=== PATIENT | male | born 1980 | race Caucasian/White ===

== ENCOUNTER 2021-05-13 10:57 | Observation (INO) | payer OTHER, BC ==
[2021-05-13] MEDS ORDERED: ceFAZolin 2 GM/DEX 5% 100 ML BAG ONE (11:01)
[2021-05-13] MEDS ORDERED: Boostrix 0.5 ML (Tdap) VIAL ONE (11:01)
[2021-05-13] MEDS ORDERED: Morphine 4 MG/ML VIAL ONE (11:03)
[2021-05-13] MEDS ORDERED: Ondansetron PF 4 MG/2 ML Vial ONE ×2 (11:03→17:28)
[2021-05-13 11:35] LABS: ALT (SGPT) 57 U/L (8-55); AST (SGOT) 35 U/L (5-34); Albumin 4.3 g/dL (3.5-5.0); Alkaline Phosphatase 71 U/L (40-110); Anion Gap 14 mmol/L (10-20); BUN (Urea Nitrogen) 12 mg/dL (8.9-20.6); Bilirubin, Total 0.8 mg/dL (0.2-1.2); Calc. Creatinine Clearance 0 mL/min (70-130); Calcium 9.2 mg/dL (7.8-10.44); Carbon Dioxide 23 mmol/L (22-29); Chloride 106 mmol/L (98-107); Globulin 2.8 g/dL (2.4-3.5); Glucose 116 mg/dL (70-105); Protein, Total 7.1 g/dL (6.0-8.3); Sodium 139 mmol/L (136-145)
[2021-05-13] MEDS ORDERED: Fentanyl 100 MCG/2 ML VIAL ONE ×3 (11:40→18:57)
[2021-05-13 11:41] LABS: #Basophils 0.1 thou/uL (0.0-0.2); #Eosinphils 0.4 thou/uL (0.0-0.7); #Lymphocytes 4.4 thou/uL (1.20-3.40); #Monocytes 0.9 thou/uL (0.11-0.59); #Neutrophils 4.4 thou/uL (1.40-6.50); %Eosinophils 3.9 % (0.0-10.0); %Lymphocytes 43.6 % (21.0-51.0); %Monocytes 8.5 % (0.0-10.0); Hemoglobin 15.8 g/dL (14.0-18.0); Mean Corpuscular HGB CONC 33.1 g/dL (32.0-36.0); Mean Corpuscular Volume 99.5 fL (78.0-98.0); Mean Platelet Volume 8.5 fL (7.4-10.4); Platelet Count 217 thou/uL (130-400); RBC Distribution Width 12.3 % (11.5-14.5); White Blood Cell (WBC) Count 10.2 thou/uL (4.8-10.8)
[2021-05-13 12:11] LABS: SARS-CoV-2 NAA Rapid Test Not Detected (NotDetected)
[2021-05-13] MEDS ORDERED: HYDROmorphone 0.5 MG/0.5 ML SYRINGE ONE ×4 (12:40→19:49)
[2021-05-13] MEDS ORDERED: Lidocaine 1% w/Epinephrine 1:100K 20 ML VIAL ONE (12:52)
[2021-05-13] MEDS ORDERED: Lidocaine 1% PF 5 ML VIAL ONE ×2 (13:19→17:28)
[2021-05-13] MEDS ORDERED: Ketamine 50 MG/ML (10ML VIAL) ONE ×2 (13:34→14:55)
[2021-05-13] MEDS ORDERED: Ketorolac Tromethamine 30 MG/ML VIAL ONE (13:34)
[2021-05-13] MEDS ORDERED: Lidocaine 1% (PF) 30 ML VIAL ONE ×2 (14:27→17:38)
[2021-05-13] MEDS ORDERED: Ondansetron ODT 4 MG TAB PO PRN (16:17)
[2021-05-13] MEDS ORDERED: Ondansetron PF 4 MG/2 ML Vial IVP PRN (16:17)
[2021-05-13] MEDS ORDERED: hydrALAZINE 20 MG/ML VIAL SLOW IVP PRN (16:21)
[2021-05-13] MEDS ORDERED: traMADol HCl 50 MG TAB PO PRN (16:21)
[2021-05-13] MEDS ORDERED: Midazolam HCl 2 mg/2 ml Vial ONE (16:46)
[2021-05-13] MEDS ORDERED: Neomycin-Polymyxin 1 ML AMP ONE (16:55)
[2021-05-13] MEDS ORDERED: PHENYLEPHRINE-NS 100 MCG/ML 10 ML SYRINGE ONE (17:28)
[2021-05-13] MEDS ORDERED: Succinylcholine 200 MG/10 ml SYRINGE FS ONE (17:28)
[2021-05-13] MEDS ORDERED: Dexamethasone 20 MG/5 ML VIAL ONE (17:28)
[2021-05-13] MEDS ORDERED: PROPOFOL 200 MG/20 ML VIAL ONE (17:28)
[2021-05-13] MEDS ORDERED: Bupivacaine 0.25% HCL 30 ML VIAL ONE (17:38)
[2021-05-13] MEDS ORDERED: Morphine 4 MG/ML VIAL SLOW IVP PRN (18:23)
[2021-05-13] MEDS ORDERED: Promethazine HCl 25 MG/ML VIAL IM PRN (18:56)
[2021-05-13] MEDS ORDERED: Meperidine HCl/PF 25 MG/ML VIAL SLOW IVP PRN (18:56)
[2021-05-13] MEDS ORDERED: Ondansetron HCl/PF 4 MG/2 ML Vial IVP PRN (18:56)
[2021-05-13] MEDS ORDERED: HYDROmorphone 2 MG/ML VIAL SLOW IVP PRN (18:56)
[2021-05-13] MEDS ORDERED: Promethazine HCl 25 MG/ML VIAL IVPB PRN (18:56)
[2021-05-13] MEDS: Famotidine 20 MG TAB PO SCH (20:49)
[2021-05-13] MEDS: traMADol HCl 50 MG TAB PO SCH ×2 (20:49→23:36)
[2021-05-13] MEDS: Gabapentin 300 MG CAP PO SCH (20:50)
[2021-05-13] MEDS: Cyclobenzaprine 10 MG TAB PO PRN (20:51)
[2021-05-13] MEDS: Senokot S 8.6-50 MG TAB PO SCH (20:59)
[2021-05-13] MEDS: Ibuprofen 600 MG TAB PO SCH ×2 (20:59→23:35)
[2021-05-13] MEDS: Acetaminophen 325 MG TAB PO SCH ×2 (20:59→22:24)
[2021-05-13] MEDS: Sodium Chloride 0.9% 1,000 ML IV SCH (22:24)
[2021-05-13] MEDS: CEFAZOLIN 2 GM in Premix Bag 1 BAG IVPB SCH (22:29)
[2021-05-13 22:38] VITALS: BMI 40.7
[2021-05-14] MEDS: Sodium Chloride 0.9% 1,000 ML IV SCH ×2 (04:31→09:59)
[2021-05-14] MEDS: Acetaminophen 325 MG TAB PO SCH ×2 (04:33→10:08)
[2021-05-14 06:05] LABS: #Lymphocytes 1.1 thou/uL (1.20-3.40); #Monocytes 0.7 thou/uL (0.11-0.59); #Neutrophils 9.4 thou/uL (1.40-6.50); %Basophils 0.3 % (0.0-1.0); %Eosinophils 0.1 % (0.0-10.0); %Lymphocytes 9.4 % (21.0-51.0); %Monocytes 6.1 % (0.0-10.0); %Neutrophils 84.1 % (42.0-75.0); Hemoglobin 13.5 g/dL (14.0-18.0); Mean Corpuscular HGB CONC 32.9 g/dL (32.0-36.0); Mean Corpuscular Hemoglobin 32.9 pg (27.0-31.0); Mean Corpuscular Volume 99.7 fL (78.0-98.0); Mean Platelet Volume 8.5 fL (7.4-10.4); Platelet Count 150 thou/uL (130-400); White Blood Cell (WBC) Count 11.2 thou/uL (4.8-10.8)
[2021-05-14 06:17] LABS: PTT 28.2 sec (22.9-36.1); Prothrombin Time 12.9 sec (12.0-14.7)
[2021-05-14] MEDS: CEFAZOLIN 2 GM in Premix Bag 1 BAG IVPB SCH (06:22)
[2021-05-14] MEDS: traMADol HCl 50 MG TAB PO SCH ×2 (06:24→11:24)
[2021-05-14] MEDS: Cephalexin 250 MG CAP PO SCH ×2 (06:24→13:48)
[2021-05-14 06:27] LABS: Phosphorus 3.2 mg/dL (2.3-4.7)
[2021-05-14 07:57] LABS: Anion Gap 13 mmol/L (10-20); BUN (Urea Nitrogen) 11 mg/dL (8.9-20.6); Calc. Creatinine Clearance 221 mL/min (70-130); Calcium 8.8 mg/dL (7.8-10.44); Carbon Dioxide 21 mmol/L (22-29); Chloride 105 mmol/L (98-107); Glucose 124 mg/dL (70-105); Magnesium 1.8 mg/dL (1.6-2.6); Potassium 4.3 mmol/L (3.5-5.1); Sodium 135 mmol/L (136-145)
[2021-05-14] MEDS: Gabapentin 300 MG CAP PO SCH (08:16)
[2021-05-14] MEDS: Ibuprofen 600 MG TAB PO SCH (08:17)
[2021-05-14] MEDS: Senokot S 8.6-50 MG TAB PO SCH (08:18)
[2021-05-14] MEDS: Famotidine 20 MG TAB PO SCH (08:18)
[2021-05-14] MEDS ORDERED: Polyethylene Glycol 3350 17 GM Packet PO SCH (09:00)
[2021-05-14 12:02] VITALS: BP 135/71; TEMP 98.1
[2021-05-14] MEDS: Cyclobenzaprine 10 MG TAB PO PRN (13:48)
== END 2021-05-14 14:18 | disposition home or self-care (01) ==
LOC: ERS 10:57 → SDC 16:33 → SURG B 17:00
PROVIDERS: ADMIT Surgery; ATTEND Surgery
PROC: 0KQD0ZZ Repair Left Hand Muscle, Open Approach (ICD-10-PCS; principal; 2021-05-14)
PROC: 0HQEXZZ Repair Left Lower Arm Skin, External Approach (ICD-10-PCS; 2021-05-14)
DX: S66.422A Laceration of intrinsic muscle, fascia and tendon of left thumb at wrist and hand level, initial encounter (principal); S61.512A Laceration without foreign body of left wrist, initial encounter; S61.422A Laceration with foreign body of left hand, initial encounter; G89.11 Acute pain due to trauma; I10 Essential (primary) hypertension; E66.9 Obesity, unspecified; Z68.41 Body mass index [BMI] 40.0-44.9, adult; Z87.891 Personal history of nicotine dependence; Z20.822 Contact with and (suspected) exposure to COVID-19; W30.89XA Contact with other specified agricultural machinery, initial encounter; Y92.79 Other farm location as the place of occurrence of the external cause; Y99.0 Civilian activity done for income or pay
CPT/HCPCS: 12045; 36415; 80048; 80053; 83735; 84100; 85025; 85610; 85730; 86850; 86900; 86901; 90471; 90715; 96374; 96375; 96376; G0378; G0390; J0690; J1100; J1170; J1885; J2001; J2250; J2270; J2405; J2704; J3010; J7050; S0020; U0002